=== PATIENT | female | born 1985 | race Caucasian/White ===

== ENCOUNTER 2023-07-31 18:55 | Emergency (ER) | payer OTHER ==
[~2023-07-31] VITALS: Ht 157.5 cm; Wt 72.7 kg
[2023-07-31 19:12] VITALS: BP 104/68; PULSE 100; RESP 18; TEMP 98.5; O2SAT 100
[2023-07-31 19:48] LABS: BASOPHILS % 0.3 % (0.0-2.0); EOSINOPHILS % 1.5 % (0.0-5.0); HEMATOCRIT. 37.7 % (42.0-52.0); HEMOGLOBIN. 13.2 g/dL (14.0-18.0); LYMPHOCYTES % 24.8 % (20.0-50.0); MEAN CORPUSCULAR HEMOGLOBIN 33.2 pg (28.0-32.0); MEAN CORPUSCULAR HGB CONC 34.9 g/dL (31.0-37.0); MONOCYTES % 8.3 % (2.0-8.0); NEUTROPHILS % 65.1 % (40.0-76.0); PLATELET 262 x1000/uL (130-400); RED BLOOD CELL COUNT 3.97 mill/uL (4.7-6.1); RED CELL DISTRIBUTION WIDTH 13.5 % (11.6-14.6); WHITE BLOOD COUNT 10.1 x1000/uL (4.5-11.0)
[2023-07-31 19:51] LABS: CHLORIDE 106 mEq/L (98-107); POTASSIUM 3.6 mEq/L (3.5-5.1); SODIUM 138 mEq/L (136-145)
[2023-07-31 19:52] LABS: CALCIUM 9.6 mg/dL (8.7-10.4); CARBON DIOXIDE 24 mEq/L (21-32)
[2023-07-31 19:57] LABS: CREATININE 0.7 mg/dL (0.6-1.3); GLUCOSE 95 mg/dL (70-105); UREA NITROGEN BLOOD 11 mg/dL (9-23)
[2023-07-31 22:20] LABS: B-HCG QUANTITATIVE 2257 mIU/mL (<3)
[2023-07-31 23:10] LABS: CLARITY URINE CLEAR (CLEAR); COLOR URINE YELLOW (YELLOW); GLUCOSE URINE NEGATIVE (NEGATIVE); KETONES URINE 1+ (NEGATIVE); LEUKOCYTE ESTERASE URINE TRACE (NEGATIVE); NITRITE URINE NEGATIVE (NEGATIVE); OCCULT BLOOD URINE 1+ (NEGATIVE); PH URINE 5.5 (4.5-8.0); PROTEIN URINE NEGATIVE (NEGATIVE); SPECIFIC GRAVITY URINE 1.012 (1.005-1.030); UROBILINOGEN URINE 0.2 E.U./dL (0.2-1.0)
[2023-08-01 00:04] LABS: BACTERIA URINE 1+; RBC URINE 0-2 /hpf (0-2); SQUAMOUS EPITHELIAL CELL URINE 1+ /lpf (RARE/1+); WBC URINE 0-2 /hpf (0-2)
== END 2023-08-01 01:04 | disposition home or self-care (01) ==
LOC: EDSEX → ER 18:55
DX: O20.0 Threatened abortion (principal); R10.9 Unspecified abdominal pain; Z3A.01 Less than 8 weeks gestation of pregnancy
CPT/HCPCS: 36415; 76801; 80048; 81003; 84702; 85025; 86850; 86900; 99284

== ENCOUNTER 2023-08-02 14:45 | Emergency (ER) | payer OTHER ==
[~2023-08-02] VITALS: Ht 160 cm; Wt 70.0 kg
[2023-08-02 14:55] VITALS: O2SAT 100
[2023-08-02 18:30] VITALS: BP 100/65; PULSE 81; RESP 17; TEMP 98.2
== END 2023-08-02 19:04 | disposition home or self-care (01) ==
LOC: ER 14:48 → EDSEX 14:48 → ER 19:04
DX: O20.0 Threatened abortion (principal); O99.281 Endocrine, nutritional and metabolic diseases complicating pregnancy, first trimester; Z3A.01 Less than 8 weeks gestation of pregnancy
CPT/HCPCS: 36415; 76801; 84702; 99284